=== PATIENT | male | born 1980 | race Caucasian/White ===

== ENCOUNTER 2018-05-08 13:57 | Outpatient (CLI) | payer BC | END 2018-05-08 13:58 | disposition home or self-care (01) | LOC: CTENTCT 13:57 | PROVIDERS: ATTEND Specialist | DX: J32.9 Chronic sinusitis, unspecified (principal) | CPT/HCPCS: 70486 ==

== ENCOUNTER 2021-12-02 16:30 | Outpatient (CLI) | payer BC | END 2021-12-02 16:31 | disposition home or self-care (01) | LOC: SLEEPLAB 16:30 | PROVIDERS: ATTEND Family Medicine | DX: G47.33 Obstructive sleep apnea (adult) (pediatric) (principal); R51.9 Headache, unspecified; E66.9 Obesity, unspecified; R06.83 Snoring | CPT/HCPCS: 95800 ==